=== PATIENT | male | born 1990 | race African-American/Black ===

== ENCOUNTER 2019-01-10 13:33 | Emergency (ER) | payer MEDICARE, MEDICAID ==
[~2019-01-10] VITALS: Ht 172.7 cm; Wt 68.0 kg
--- OUTSIDE RECORDS SUMMARY | 2019-01-10 13:37 | XMS REPORT | CCD ---
Author Author MANJINDER YATES Organization Unknown Address [address] [place], [place] [id number] Care Team Providers Care Fruit Bar Maker Name Role Phone [facility], VARUN DO Attphys [facility], VARUN DO Prisurg Vital Signs Unknown. Allergies Allergy Code Allergy Type Reaction Status No Known Allergies 0 No known allergies Active Procedures Unknown. History of Immunizations Unknown. Problems Unknown. Results Unknown. Medications Unknown. Medications Administered Unknown. Encounters Encounter Diagnosis Diagnosis Code Start Date SPRAIN LUMBAR REGION 8472 03/15/2014 Social History Smoking Status Code Start Date End Date Never smoker [id number] Patient Decision Aids Unknown. Discharge Instructions You were admitted to [facility] on 03/15/2014 with a principle diagnosis of SPRAIN LUMBAR REGION. You were discharged from [facility] on 03/15/2014. Should you have any questions prior to discharge, please contact a member of your healthcare team. If you have left the hospital and have any questions, please contact your primary care physician. Chief Complaint and Reason For Visit Chief Complaint Date of Onset BACK PAIN Function Status Unknown. Referral/Transition of Care Unknown.
--- OUTSIDE RECORDS SUMMARY | 2019-01-10 13:37 | XMS REPORT | Continuity of Care Document ---
Author Organization Unknown Address Unknown Allergies There is no data. Medications There is no data. Problems There is no data. Procedures There is no data. Results There is no data. Encounters ACCT No. Visit Date/Time Discharge Status Pt. Type Provider Facility Loc./Unit Complaint [id number] 05/23/2015 14:15:49 05/23/2015 23:59:59 CLS Outpatient Carmen Senior [id number] 09/26/2014 20:21:10 09/26/2014 23:59:59 CLS Outpatient Jayjay Coates
--- OUTSIDE RECORDS SUMMARY | 2019-01-10 13:37 | XMS REPORT | CCD ---
Author Author SAUD RODRIGUEZ Organization Unknown Address [address] [place], [place] [id number] Care Team Providers Care Plant Associate Name Role Phone [facility], AMBROCIO ER Attphys MIRIAM PHYS, AMBROCIO ER Prisurg Vital Signs Unknown or Not Available. Allergies Allergy Code Allergy Type Reaction Status No Known Allergies 0 No known allergies Active Procedures Procedure Code Procedure Type Date BAN AERO ECLIPSE TREATMENT [id number] SNOMED CT 05/08/2015 History of Immunizations Immunization Code Date Td (adult), adsorbed 09 02/11/2005 influenza, split (incl. purified surface antigen) 15 07/27/2006 influenza, split (incl. purified surface antigen) 15 07/15/2007 influenza, split (incl. purified surface antigen) 15 07/18/2008 Problems Unknown or Not Available. Results Unknown or Not Available. Active Medications Unknown or Not Available. Medications Administered During Visit Unknown or Not Available. Encounters Encounter Diagnosis Diagnosis Code Start Date SIMPLE CHR BRONCHITIS 4910 05/08/2015 Social History Smoking Status Code Start Date End Date Never smoker [id number] Patient Decision Aids Unknown or Not Available. Discharge Instructions You were admitted to [facility] on 05/08/2015 with a principal diagnosis of SIMPLE CHR BRONCHITIS. You were discharged from [facility] on 05/08/2015. Should you have any questions prior to discharge, please contact a member of your healthcare team. If you have left the hospital and have any questions, please contact your primary care physician. Chief Complaint and Reason For Visit Chief Complaint Date of Onset COLD SYMTOMS Function Status Unknown or Not Available. Plan of Care Unknown or Not Available. Referral/Transition of Care Unknown or Not Available.
[2019-01-10] MEDS ORDERED: fentaNYL INJECTION 100 MCG/2 ML AMP ONE (14:08)
[2019-01-10 14:14] LABS: BASOPHILS % (AUTO) 0 % (0-10); EOSINOPHILS # (AUTO) 0.1 10^3/uL (0.0-0.3); EOSINOPHILS % (AUTO) 1 % (0-10); HEMATOCRIT 45 % (40-54); HEMOGLOBIN 15.1 G/DL (13.3-17.7); LYMPHOCYTES # (AUTO) 1.1 X 10^3 (1.0-4.0); LYMPHOCYTES % (AUTO) 10 % (12-44); MEAN CORPUSCULAR HEMOGLOBIN 30 PG (25-34); MEAN CORPUSCULAR HGB CONC 34 G/DL (32-36); MEAN CORPUSCULAR VOLUME 88 FL (80-99); MEAN PLATELET VOLUME 10.5 FL (7.4-10.4); MONOCYTES % (AUTO) 10 % (0-12); NEUTROPHILS # (AUTO) 8.5 X 10^3 (1.8-7.8); NEUTROPHILS % (AUTO) 79 % (42-75); PLATELET COUNT 170 10^3/uL (130-400); WHITE BLOOD COUNT 10.7 10^3/uL (4.3-11.0)
[2019-01-10] MEDS ORDERED: fentaNYL INJECTION 100 MCG/2 ML AMP IVP ONE (14:15)
[2019-01-10] MEDS ORDERED: IOHEXOL 350 MG/ML 100 ML (OMNIPAQUE 350) VIAL IV ONE (14:15)
[2019-01-10] MEDS ORDERED: HOLD METFORMIN - RECEIVED CONTRAST 20 ML VIAL IV SCH (14:15)
[2019-01-10 14:34] LABS: ALANINE AMINOTRANSFERASE 48 U/L (0-55); ALBUMIN 4.1 GM/DL (3.2-4.5); ALKALINE PHOSPHATASE 54 U/L (40-136); BILIRUBIN,TOTAL 0.3 MG/DL (0.1-1.0); BUN/CREATININE RATIO 13; CARBON DIOXIDE 26 MMOL/L (21-32); CHLORIDE 103 MMOL/L (98-107); CREATININE SERUM 0.91 MG/DL (0.60-1.30); GFR ESTIMATED > 60; GLUCOSE 99 MG/DL (70-105); POTASSIUM 3.9 MMOL/L (3.6-5.0); SODIUM 138 MMOL/L (135-145); TOTAL PROTEIN 7.8 GM/DL (6.4-8.2)
--- NOTE | 2019-01-10 14:41 | NUR ---
LAB HERE TO DRAW 2ND SET OF BLOOD CULTURES.
[2019-01-10] MEDS ORDERED: CLINDAMYCIN 600 MG/50 ML IVPB 50 ML IV ONE (14:45)
--- NOTE | 2019-01-10 14:56 | ED EENT ---
History of Present Illness General Chief Complaint: Dental Problems/Pain Stated Complaint: FACIAL SWELLING Nursing Triage Note: PT REPORTS R SIDED DENTAL PAIN, FACIAL SWELLING SINCE 01/08/19. REPORTS SWELLING GOT PROGRESSIVELY WORSE OVERNIGHT. PT WAS SEEN AT [facility] TODAY AND REFERRED TO ED. Source: patient Exam Limitations: no limitations History of Present Illness Date Seen by Provider: Jan 10, 2019 Time Seen by Provider: 14:03 Initial Comments 28-year-old male who presents to the emergency room with complaints of right lower dental pain, facial swelling that started on 01/08/19. He was seen at [facility] dental clinic and referred to the emergency room for further treatment. He denies shortness of breath or throat swelling. He reports that he feels like she 's had a low-grade fever but has not taken his temperature. Denies nausea and vomiting. Location: facial, dental Prearrival Treatment: no prearrival treatment Associated Symptoms: facial pain/swelling, tooth pain Allergies and Home Medications Allergies Coded Allergies: No Known Drug Allergies (Unverified , 01/10/19) Home Medications Clindamycin HCl 300 Mg Capsule, 300 MG PO QID Prescribed by: FRANKLIN OTOOLE on 01/10/19 1522 Hydrocodone Bit/Acetaminophen 1 Tab Tab, 1 EACH PO Q4-6HR PRN for PAIN-MODERATE Prescribed by: FRANKLIN OTOOLE on 01/10/19 1522 Patient Home Medication List Home Medication List Reviewed: Yes Review of Systems Review of Systems Constitutional: see HPI, chills, fever Mouth: see HPI, pain, swelling (facial) All Other Systems Reviewed Negative Unless Noted: Yes Past Anrwjxi-Emijgm-Cdshdm Hx Past Med/Social Hx: Reviewed Nursing Past Med/Soc Hx Patient Social History Alcohol Use: Denies Use Recreational Drug Use: No Smoking Status: Current Everyday Smoker Type Used: Cigars Recent Foreign Travel: No Contact w/Someone Who Travel: No Recent Infectious Disease Expo: No Recent Hopitalizations: No Physical Abuse: No Sexual Abuse: No Mistreated: No Fear: No Seasonal Allergies Seasonal Allergies: No Past Medical History Surgeries: Yes (hernia repair, r hand, eye sx.) Adenoidectomy, Eye Surgery, Tonsillectomy Respiratory: No Cardiac: No Neurological: No Genitourinary: No Gastrointestinal: No Musculoskeletal: No Endocrine: No HEENT: No Cancer: No Psychosocial: No Integumentary: No Blood Disorders: No Family Medical History Reviewed Nursing Family Hx Physical Exam Vital Signs Vital Signs - First Documented 01/10/19 01/10/19 13:39 15:35 Temp 97.9 Pulse 74 Resp 20 B/P (MAP) 137/80 (99) Pulse Ox 100 O2 Delivery Room Air Height, Weight, BMI Height: 5'8.00" Weight: 150lbs. oz. 68.216244ar; BMI Method:Stated General Appearance: WD/WN, no apparent distress Eyes: bilateral eye normal inspection, bilateral eye PERRL, bilateral eye EOMI Ears: bilateral ear auricle normal, bilateral ear canal normal, bilateral ear TM normal Nose: normal inspection Mouth/Throat: pharynx normal, dental tenderness (see images), mandibular swelling (see images) Neck: non-tender, full range of motion, supple, normal inspection Cardiovascular: normal peripheral pulses, regular rate, rhythm, no edema, no gallop, no JVD, no murmur Respiratory: chest non-tender, lungs clear, normal breath sounds, no respiratory distress, no accessory muscle use Gastrointestinal: normal bowel sounds, non tender, soft, no organomegaly, no pulsatile mass, tenderness, spleenomegaly Neurologic/Psychiatric: alert, normal mood/affect, oriented x 3 Skin: normal color, warm/dry Progress/Results/Core Measures Results/Orders Lab Results Laboratory Tests Test 01/10/19 14:05 01/10/19 14:47 Range/Units White Blood Count 10.7 4.3-11.0 10^3/uL Red Blood Count 5.12 4.35-5.85 10^6/uL Hemoglobin 15.1 13.3-17.7 G/DL Hematocrit 45 40-54 % Mean Corpuscular Volume 88 80-99 FL Mean Corpuscular Hemoglobin 30 25-34 PG Mean Corpuscular Hemoglobin Concent 34 32-36 G/DL Red Cell Distribution Width 14.0 10.0-14.5 % Platelet Count 170 130-400 10^3/uL Mean Platelet Volume 10.5 H 7.4-10.4 FL Neutrophils (%) (Auto) 79 H 42-75 % Lymphocytes (%) (Auto) 10 L 12-44 % Monocytes (%) (Auto) 10 0-12 % Eosinophils (%) (Auto) 1 0-10 % Basophils (%) (Auto) 0 0-10 % Neutrophils # (Auto) 8.5 H 1.8-7.8 X 10^3 Lymphocytes # (Auto) 1.1 1.0-4.0 X 10^3 Monocytes # (Auto) 1.0 0.0-1.0 X 10^3 Eosinophils # (Auto) 0.1 0.0-0.3 10^3/uL Basophils # (Auto) 0.0 0.0-0.1 10^3/uL Sodium Level 138 135-145 MMOL/L Potassium Level 3.9 3.6-5.0 MMOL/L Chloride Level 103 98-107 MMOL/L Carbon Dioxide Level 26 21-32 MMOL/L Anion Gap 9 5-14 MMOL/L Blood Urea Nitrogen 12 7-18 MG/DL Creatinine 0.91 0.60-1.30 MG/DL Estimat Glomerular Filtration Rate > 60 BUN/Creatinine Ratio 13 Glucose Level 99 70-105 MG/DL Calcium Level 10.0 8.5-10.1 MG/DL Corrected Calcium 9.9 8.5-10.1 MG/DL Total Bilirubin 0.3 0.1-1.0 MG/DL Aspartate Amino Transf (AST/SGOT) 44 H 5-34 U/L Alanine Aminotransferase (ALT/SGPT) 48 0-55 U/L Alkaline Phosphatase 54 40-136 U/L Total Protein 7.8 6.4-8.2 GM/DL Albumin 4.1 3.2-4.5 GM/DL Lactic Acid Level 1.21 0.50-2.00 MMOL/L My Orders Orders - FRANKLIN OTOOLE Cbc With Automated Diff (01/10/19 14:01) Comprehensive Metabolic Panel (01/10/19 14:01) Blood Culture (01/10/19 14:01) Lactic Acid Analyzer (01/10/19 14:01) Ct Neck (Soft Tissue) W (01/10/19 14:01) Iohexol Injection (Omnipaque 350 Mg/Ml 1 (01/10/19 14:15) Received Contrast (Hold Metformin- Contr (01/10/19 14:15) Fentanyl Injection (Sublimaze Injection (01/10/19 14:15) Fentanyl Injection (Sublimaze Injection (01/10/19 14:08) Clindamycin 600 Mg/50 Ml Ivpb (Cleocin P (01/10/19 14:45) Medications Given in ED Current Medications Medications Dose Ordered Sig/Randee Route Start Time Stop Time Status Last Admin Dose Admin Clindamycin Phosphate/Dextrose 50 ml @ 100 mls/hr ONCE ONCE IV 01/10/19 14:45 01/10/19 15:14 DC 01/10/19 14:54 100 MLS/HR Fentanyl Citrate 25 mcg ONCE ONCE IVP 01/10/19 14:15 01/10/19 14:16 DC 01/10/19 14:12 25 MCG Iohexol 75 ml ONCE ONCE IV 01/10/19 14:15 01/10/19 14:17 DC 01/10/19 14:38 75 ML Vital Signs/I&O 01/10/19 01/10/19 13:39 15:35 Temp 97.9 Pulse 74 70 Resp 20 16 B/P (MAP) 137/80 (99) 131/74 (93) Pulse Ox 100 100 O2 Delivery Room Air Blood Pressure Mean: 99 Progress Progress Note : Time: 15:20 Progress Note I have seen and evaluated the patient. I've informed him of his laboratory and imaging studies. His laboratory findings showed no indications of sepsis. He did receive IV dose of clindamycin and will be placed on oral for the next 7 days. He agrees with plan of care, plans for follow-up, return precautions were given. Diagnostic Imaging Diagonstic Imaging: CT Plain Films/CT/US/NM/MRI: facial bones Comments [facility] [place], [place] NAME: ELISA HERNANDEZ [facility] REC#: [id number] PT STATUS: REG ER : 1990 PHYSICIAN: FRANKLIN OTOOLE ADMIT DATE: 01/10/19/ER Draft Date of Exam:01/10/19 CT NECK (SOFT TISSUE) W PROCEDURE: CT neck soft tissue with contrast. TECHNIQUE: Multiple contiguous axial images were obtained through the neck after the administration of contrast. Auto Exposure Controls were utilized during the CT exam to meet ALARA standards for radiation dose reduction. INDICATION: Right-sided neck mass and swelling. COMPARISON: No prior studies are available for comparison. FINDINGS: The visualized intracranial structures are unremarkable. Posterior nasopharynx and oropharynx are unremarkable. Parapharyngeal fat planes are preserved. The epiglottis and larynx are unremarkable. Prevertebral tissues are unremarkable. There appears to be swelling in the right facial soft tissues. Edema in the subcutaneous tissues. Ill-defined low density along the outer surface of the right mandibular ramus is noted. Minimal low density does contain some small gas bubbles and is consistent with early abscess formation. This area measures 13 mm x 19 mm. No other fluid collections are seen. There does appear to be some periapical lucency involving right-sided posterior mandibular teeth, likely posterior molars consistent with periapical abscesses. Submandibular and parotid glands appear to be symmetric. There are some enlarged cervical lymph nodes in the jugulodigastric and posterior cervical regions bilaterally, likely reactive. Paranasal sinuses demonstrate some mucosal thickening of the left maxillary sinus. IMPRESSION: 1. Findings consistent with periapical abscesses involving right-sided posterior mandibular teeth. There is associated right facial cellulitis as well as probable small abscess formation identified in the right facial soft tissues along the outer surface of the right mandibular ramus. Dictated on workstation # [id number] Dict: 01/10/19 1439 Trans: 01/10/19 1454 [id number] Interpreted by: ERIC CORTEZ MD Electronically signed by: Reviewed: Reviewed by Me Departure Impression Primary Impression: Dental abscess Disposition: 01 HOME, SELF-CARE Condition: Stable/Unchanged Departure-Patient Inst. Decision time for Depature: 15:20 Patient Instructions: Tooth Abscess (DC) Add. Discharge Instructions: Take medications as directed. Follow-up with [facility] dental clinic within 1 week for a recheck. Return back to the emergency room for worsening symptoms or concerns as needed. Call tomorrow today to schedule an appointment. All discharge instructions reviewed with patient and/or family. Voiced understanding. Scripts Hydrocodone Bit/Acetaminophen (Hydrocodone/Acetaminophen 5/325mg Tablet) 1 Tab Tab 1 EACH PO Q4-6HR PRN for PAIN-MODERATE MDD 10, #14 TAB Prov: FRANKLIN OTOOLE 01/10/19 Clindamycin HCl (Clindamycin HCl) 300 Mg Capsule 300 MG PO QID for 7 Days, #28 CAP Prov: FRANKLIN OTOOLE 01/10/19 Images Head/Face 1 - Swelling, Tenderness Mouth/Nose 1 - Caries, Fracture Tooth, Swelling, Tenderness FRANKLIN OTOOLE Jan 10, 2019 14:56
[2019-01-10] MEDS ORDERED: CLIN300C11 PO (15:22)
[2019-01-10] MEDS ORDERED: ACHD5005 PO (15:22)
[2019-01-10 15:35] VITALS: BP 131/74
== END 2019-01-10 15:35 | disposition home or self-care (01) ==
LOC: ER 13:35
DX: K04.7 Periapical abscess without sinus (principal); F17.290 Nicotine dependence, other tobacco product, uncomplicated; Z90.89 Acquired absence of other organs; Z98.890 Other specified postprocedural states
CPT/HCPCS: 36415; 70491; 80053; 83605; 85025; 87040